=== PATIENT | female | born 1970 | race Caucasian/White ===

== ENCOUNTER 2023-12-18 08:20 | Day surgery (SDC) | payer MEDICAID, SELFPAY ==
[2023-12-18] VITALS (9 sets, daily range): BP systolic 96–119; BP diastolic 64–79; PULSE 62–71; RESP 16; TEMP 36.1; O2SAT 96–100; BMI 35.9
[2023-12-18] MEDS: Lactated Ringers 1,000 ML 15 ML IV (08:51)
--- NOTE | 2023-12-18 08:58 | PCM.PRE.AN2 ---
ASA Classification* ASA Classification ASA Classification: 2 Assessment & Plan Anesthesia* Anesthesia Assessment Anesthesia Assessment: Discussed sedation and/or anesthesia options, risks, benefits, and alternatives with patient/parents/legal guardian/POA. Questions invited. The patient/parents/legal guardian/POA seems to understand and agrees to proceed with anesthesia plan. Reviewed the physical assessment, medical history, allergy history and patient home medications list prior to surgery/procedure/anesthetic and documented any changes. Performed airway and anesthesia risk assessments. Anesthesia Type Anesthesia Type: MAC Pre-Assessment Diagnosis/Proposed Procedure Planned Operative Procedure(s): COLONOSCOPY Anesthesia History Anesthesia History - bicycle mechanic: Anesthesia History - bicycle mechanic Hx Hospitalization No 12/13/23 15:08 Any Problems With Anesthesia No 12/13/23 15:08 Cholinesterase deficiency No 12/13/23 15:08 You/Your Family Experience No 12/13/23 15:08 fever (hyperthermia) with Relationship Recent Exposure to Contagious No 12/18/23 08:42 Disease Does patient have nerve No 12/13/23 15:08 stimulator Patient instructed to have device shut off --Does patient have Pacemaker No 12/18/23 08:42 or ICD? When Was Last Pacemaker Check QUESTION #4 FULL TEXT: You/Your Family Experience fever (hyperthermia) with Anesthesia Last Oral Intake Last Oral intake: Last Oral Intake NPO since 04:45 12/18/23 08:42 Meds taken in AM with sips of No 12/18/23 08:42 water? Meds patient instructed to take am of surgery PONV PONV - bicycle mechanic: PONV - bicycle mechanic Female Yes 12/13/23 15:08 HX of Motion Sickness No 12/13/23 15:08 HX of N/V After Surgery No 12/13/23 15:08 Non-Smoker Yes 12/13/23 15:08 Duration of Surgery greater No 12/13/23 15:08 than 60 minutes Number of Risk Factors 2 12/13/23 15:08 PONV Score Moderate Risk 12/13/23 15:08 Height & Weight Height & Weight: Anesthesia: Height & Weight Height 5 ft 5 in 12/18/23 08:42 Weight: 98 kg 12/18/23 08:42 Body Mass Index (BMI) 35.9 12/18/23 08:42 Respiratory Assessment Respiratory Assessment - bicycle mechanic: Respiratory Tract Infection Hx - bicycle mechanic Hx Respiratory Tract Infection No 12/13/23 15:08 STOP Sleep Apnea STOP Sleep Apnea - bicycle mechanic: STOP Sleep Apnea - bicycle mechanic Hx Hypertension No 12/13/23 15:08 Hx Sleep Apnea No 12/13/23 15:08 CPAP BIPAP Do you snore loudly (louder No 12/13/23 15:08 than talking or can be heard Do you often feel tired/ No 12/13/23 15:08 fatigued/ sleepy during daytime? Has anyone observed you stop No 12/13/23 15:08 breathing during sleep? STOP Results Negative 12/13/23 15:08 QUESTION #5 FULL TEXT : Do you snore loudly (louder than talking or can be heard through closed doors)? Tobacco Use History Tobacco Use History - bicycle mechanic: Tobacco Use History - bicycle mechanic Tobacco Use Smoking Status Never smoker 12/13/23 15:08 Hx Tobacco Use No 12/13/23 15:08 Years Smoking Packs Smoked per Day Smoking Cessation Date was within the last 15 years Hx Smoking Cessation Date Hx Smoking Cessation Counseling Hematologic Medial History Hematologic Hx - bicycle mechanic: Hematologic Medical Hx - senior production planner Hx of Blood Transfusion No 12/13/23 15:08 Hx of Transfusion in last 3 No 12/13/23 15:08 Months Date of Last Transfusion (if within last 3 months) Ever experience any problems No 12/13/23 15:08 with transfusion(s)? Specify any problems Hx of Preganancy in last 3 No 12/13/23 15:08 Months Nurse Filling Out Transfusion [facility] 12/13/23 15:08 & Questions: Date: 12/13/23 12/13/23 15:08 Time: 15:18 12/13/23 15:08 Patient unable to answer at this time (ie. confused, unrespo /Reproduction History /Reproductive History - bicycle mechanic: /Reproductive Hx- bicycle mechanic Hx Now No 12/13/23 15:08 Gestational Age (in weeks): EDC: Hx Hx Para Hx Section SAB No 12/13/23 15:08 Active Medications Active Medications: Current Medications Generic Name Dose Route Start Last Admin Trade Name Freq PRN Reason Stop Dose Admin Lactated Ringer's 1,000 mls @ 15 mls/hr 12/18/23 08:30 12/18/23 08:51 IV 15 mls/hr .Q48H TERI Administration Anesthesia Focused Assessment* Temperature: 97 F Pulse Rate: 63 Blood Pressure: 119/79 Respiratory Rate: 16 Pulse Ox: 98 Airway Assessment Mouth opens: >3 cm Mallampati Score: III Teeth Condition: Caps/Crowns (Multiple tight) and Missing (1 missing tooth left upper molar) Neck Range of motion (ROM): Full ROM Pertinent Findings EKG Pertinent Findings:: EKG from July 12, 2022 shows sinus tachycardia nonspecific ST changes ECHO Pertinent Findings:: Echo performed on June 28, 2022 showed an ejection fraction of 55 to 60% Other Pertinent Findings:: Patient did not take any medications today Focused Labs Anesthesia Preop lab: CBC CHEMISTRY COAG Review of Systems (Anesthesia) ROS Narrative System reviewed and no additional complaints, except as documented. [facility] Medical History Wears glasses History of Clostridium difficile infection Thyroid disease Arthritis History of renal disease Anemia Restless legs Non-smoker History of edema History of echocardiogram Fibromyalgia Hx of colonic polyp Family hx of colon cancer Home Medications ?Medication ?Instructions ?Recorded ?Last Taken ?Type dextromethorphan IR 45 1 tab PO BID 12/03/23 Unknown History mg-bupropion ER 105 mg biphasic tablet (Auvelity) duloxetine 20 mg capsule,delayed 60 mg PO DAILY 12/03/23 Unknown History release gabapentin 400 mg capsule 400 mg PO TID 12/03/23 Unknown History thyroid (pork) 120 mg tablet 120 mg PO DAILY 12/03/23 Unknown History ([place] Thyroid) tizanidine 4 mg tablet 4 mg PO Q8H PRN muscle spasticity 12/03/23 Unknown History montelukast 10 mg tablet 10 mg PO DAILY 12/13/23 Unknown History (Singulair) Allergy/AdvReac Type Severity Reaction Status Date / Time No Known Allergies Allergy Verified 12/18/23 08:38 Family History Grandfather Colon cancer Grandmother Colon cancer Brother Colon polyps Surgical History History of hernia repair History of carpal tunnel release of both wrists History of vein stripping History of History of Humberto fundoplication History of laparoscopic cholecystectomy History of microdiscectomy Hx of colonoscopy Social History Smoking Status: Never smoker
--- NOTE | 2023-12-18 09:15 | COLBX_PTH ---
PATIENT: JILL SWAIN LOC: [facility] U#:[id number] AGE/SX: 53/F ROOM: RE12/18/[address]: Dr. Walter Kramer DO : 1970 BED: DIS: 12/18/2023 SPEC #: [id number] RECD: 12/18/23 13:00 STATUS: CRISTHIAN GRULLONNatasha #: [id number] KIRSTIE: 12/18/23 09:[address]: Walter Kramer DEPT: SURGICAL PATHOLOGY RECD BY: Nayely Gaitan ENTERED: 12/18/23 14:08 SP TYPE: COLON BX OTHR DR: Briana Avitia, SERVICE CENTER TECHNICIAN-C Tissues: Cecum, NOS Procedures: Surgery Specimen Level IV HEADER OPERATION: Colonoscopy, polypectomy, clip application PRE-OP DIAGNOSIS: Colon screening TISSUE SUBMITTED: Cecum polyp MICROSCOPIC DIAGNOSIS Cecum polyp, biopsy: Hyperplastic polyp. See comment. CHINYERE/ 12/19/2023 COMMENT There is abundant submucosal fatty tissue. A lipomatous change is likely. Clinical correlation is suggested. MICROSCOPIC DESCRIPTION Slides are reviewed. GROSS DESCRIPTION Received in fixative is one container labeled with the patient's name and designated Cecum polyp. The specimen consists of one irregular fragment of light dawn soft tissue that measures 1.0 x 0.6 x 0.5 cm. The specimen is totally submitted in one cassette. AM/ 12/18/2023 TC:5 CPT:51418
--- NOTE | 2023-12-18 09:44 | PCM.POST.ANE ---
Anesthesia: Postop Eval I Current Vital Signs Temperature: 97 F Pulse Rate: 71 Blood Pressure: 99/64 Respiratory Rate: 16 Pulse Ox: 100 Oxygen Delivery Method: Room Air Assessment Airway patent: Yes Spontaneous unlabored respirations: Yes Mental status: Awake and Calm nausea: No Vomiting: No Anesthesia Complication: No Fluid Hydration Crystalloid volume administer (ml): 600 Total IV fluid infused: 600 Progress Note Anesthesia document: Postop Eval 1 completed: Yes
--- NOTE | 2023-12-18 09:45 | OP.COLON_ITS ---
Patient Name: Emeli Pierre Procedure Date: 12/18/2023 9:10 AM Date of : 1970 Age: 53 Procedure: Colonoscopy Indications: Screening for colorectal malignant neoplasm Providers: Walter Kramer DO Medicines: Monitored Anesthesia Care Patient Profile: This is a 53 year old female. Refer to note in patient chart for documentation of history and physical. Last Colonoscopy: more than 10 years ago. Complications: No immediate complications. Procedure: Pre-Anesthesia Assessment: - Prior to the procedure, a History and Physical was performed, and patient medications and allergies were reviewed. The patient is competent. The risks and benefits of the procedure and the sedation options and risks were discussed with the patient. All questions were answered and informed consent was obtained. Patient identification and proposed procedure were verified by the physician in the pre-procedure area. Mental Status Examination: alert and oriented. Airway Examination: normal oropharyngeal airway and neck mobility. Respiratory Examination: clear to auscultation. CV Examination: normal. Prophylactic Antibiotics: The patient does not require prophylactic antibiotics. Prior Anticoagulants: The patient has taken no anticoagulant or antiplatelet agents. ASA Grade Assessment: II - A patient with mild systemic disease. After reviewing the risks and benefits, the patient was deemed in satisfactory condition to undergo the procedure. The anesthesia plan was to use monitored anesthesia care (MAC). Immediately prior to administration of medications, the patient was re-assessed for adequacy to receive sedatives. The heart rate, respiratory rate, oxygen saturations, blood pressure, adequacy of pulmonary ventilation, and response to care were monitored throughout the procedure. The physical status of the patient was re-assessed after the procedure. After I obtained informed consent, the scope was passed under direct vision. Throughout the procedure, the patient's blood pressure, pulse, and oxygen saturations were monitored continuously. The Colonoscope was introduced through the anus and advanced to the cecum, identified by appendiceal orifice and ileocecal valve. The colonoscopy was performed without difficulty. The patient tolerated the procedure well. The quality of the bowel preparation was adequate. The terminal ileum, ileocecal valve, appendiceal orifice, and rectum were photographed. Scope In: 9:20:48 AM Scope Withdrawal Time 0 hours 13 minutes 21 seconds Scope Out: 9:37:13 AM Total Procedure Duration Time 0 hours 16 minutes 25 seconds Findings: The perianal and digital rectal examinations were normal. A 10 mm polyp was found in the cecum. The polyp was sessile. The polyp was removed with a hot snare. Resection and retrieval were complete. To prevent bleeding after the polypectomy, one hemostatic clip was successfully placed. Clip transport engineer: [employer]. There was no bleeding at the end of the procedure. A few small-mouthed diverticula were found in the recto-sigmoid colon and sigmoid colon. The exam was otherwise without abnormality on direct and retroflexion views. Impression: - One 10 mm polyp in the cecum, removed with a hot snare. Resected and retrieved. Clip was placed. Clip transport engineer: [employer]. - Diverticulosis in the recto-sigmoid colon and in the sigmoid colon. - The examination was otherwise normal on direct and retroflexion views. Recommendation: - Discharge patient to home. - Resume previous diet. - Continue present medications. - Await pathology results. - Repeat colonoscopy in 5 years for surveillance. Procedure Code(s): --- Professional --- 92759, Colonoscopy, flexible; with removal of tumor(s), polyp(s), or other lesion(s) by snare technique CPT copyright 2021 [employer]. All rights reserved. The codes documented in this report are preliminary and upon harp regulator review may be revised to meet current compliance requirements. Walter Kramer DO 12/18/2023 9:44:46 AM This report has been signed electronically. Number of Addenda: 0 Note Initiated On: 12/18/2023 9:10 AM
--- NOTE | 2023-12-18 09:45 | OP.CCLET_ITS ---
12/18/2023 Sher Manuel Re : Colonoscopy procedure for Emeli Byrd Avitia This procedure was performed on Monday, December 18, 2023. My impressions and recommendations are as follows: Impressions : - One 10 mm polyp in the cecum, removed with a hot snare. Resected and retrieved. Clip was placed. Clip hvac service manager: [employer]. - Diverticulosis in the recto-sigmoid colon and in the sigmoid colon. - The examination was otherwise normal on direct and retroflexion views. Recommendations : - Discharge patient to home. - Resume previous diet. - Continue present medications. - Await pathology results. - Repeat colonoscopy in 5 years for surveillance. My findings are described in the full procedure note, which is enclosed. If I can be of further assistance, please feel free to contact me at . Sincerely, Walter Kramer, 12/18/2023 9:44:46 AM This report has been signed electronically.
--- NOTE | 2023-12-18 12:10 | HP.PCM_ITS ---
HPI - General General Date of Admission: 12/18/23 Date of Service: 12/18/23 Chief Complaint: Screening colonoscopy HPI Narrative JILL SWAIN, is a 53 F who presents today for screening colonoscopy. She does not have abdominal pain. She did not have any nausea, vomiting or diarrhea. Overall she is in very good health. [facility] Medical History Wears glasses History of Clostridium difficile infection Thyroid disease Arthritis History of renal disease Anemia Restless legs Non-smoker History of edema History of echocardiogram Fibromyalgia Hx of colonic polyp Family hx of colon cancer Home Medications ?Medication ?Instructions ?Recorded ?Last Taken ?Type dextromethorphan IR 45 1 tab PO BID 12/03/23 Unknown History mg-bupropion ER 105 mg biphasic tablet (Auvelity) duloxetine 20 mg capsule,delayed 60 mg PO DAILY 12/03/23 Unknown History release gabapentin 400 mg capsule 400 mg PO TID 12/03/23 Unknown History thyroid (pork) 120 mg tablet 120 mg PO DAILY 12/03/23 Unknown History ([place] Thyroid) tizanidine 4 mg tablet 4 mg PO Q8H PRN muscle spasticity 12/03/23 Unknown History montelukast 10 mg tablet 10 mg PO DAILY 12/13/23 Unknown History (Singulair) Allergy/AdvReac Type Severity Reaction Status Date / Time No Known Allergies Allergy Verified 12/18/23 08:38 Family History Grandfather Colon cancer Grandmother Colon cancer Brother Colon polyps Surgical History History of hernia repair History of carpal tunnel release of both wrists History of vein stripping History of History of Humberto fundoplication History of laparoscopic cholecystectomy History of microdiscectomy Hx of colonoscopy Social History Smoking Status: Never smoker ROS Review of Systems ROS Unobtainable: other Constitutional Constitutional: Denies fatigue, fever(s), poor appetite, weight gain or weight loss ENT HEENT: Denies mouth lesions Cardiovascular Cardiovascular: Denies abdominal bloating, abdominal edema or abdominal pain Respiratory/Chest Respiratory/Chest: Denies change in mental status, change in phlegm color, chest congestion or chest tightness Gastrointestinal Gastrointestinal: Denies belching, bloating, change in bowel habits, change in stool character, chewing difficulty, coffee ground emesis, constipation, cramping, diarrhea, dyspepsia, dysphagia, early satiety, excessive flatus, fecal incontinence, heartburn, hematemesis, hematochezia, hemorrhoids, loose stools, melena, nausea, odynophagia, rectal bleeding, tenesmus, vomiting or weight changes Genitourinary Genitourinary: Denies abdominal discomfort, burning urination or itching Musculoskeletal Musculoskeletal: Reports as per HPI; Denies muscle weakness or myalgias Integumentary Integumentary: Denies jaundice Neurologic Neurologic: Denies lack of coordination or weakness Psychiatric Psychiatric: Denies confusion, depression, memory loss, mood swings, paranoia or suicidal ideation Endocrine Endocrinology: Denies systems reviewed and no addt'l complaints, except as documented Hematologic/Lymphatic Hematologic/Lymphatic: Denies anemia, easy bleeding, easy bruising or lymphadenopathy Allergic/Immunologic Allergic/Immunologic: Denies systems reviewed and no addt'l complaints, except as documented Vital Signs Vital Signs Vital Signs: Weight Weight: 216 lb 0.848 oz Body Mass Index (BMI) 35.9 Physical Exam Const alert General Appearance: cooperative Orientation / Consciousness: oriented to person HEENT hearing grossly normal bilaterally Head and Scalp: normal to inspection Face and Sinus: face symmetric Nose: external nose normal Mouth: oral and palatal mucosa normal Eyes conjunctivae normal General Eye: normal appearance of both eyes Neck full ROM General: normal visual inspection Lymph Lymphatic: no lymphadenopathy noted Chest inspection of chest normal and palpation of chest normal Chest: symmetrical chest wall rise Resp normal respiratory effort Effort and Inspection: able to speak in complete sentences Cardio regular rate GI non-distended Percussion: normal to percussion Rectal Exam: deferred Neuro Speech: speech normal Gait (Neuro): normal gait Assessment & Plan Assessment/Plan (1) Encounter for screening for malignant neoplasm of colon: PLAN: She was explained alternatives, risk, benefits including outstanding bleeding, infection, sepsis, perforation, need for mergers and . She have an ASA of 3.
--- NOTE | 2023-12-18 12:13 | PCM.POSTANE2 ---
Anesthesia Postop Eval I Sum Postop Eval Completion status Anesthesia document: Postop Eval 1 completed: Yes Anesthesia Postop Eval I Summary Anesthesia Postop Eval I Summary: Anesthesia Postop Eval I: Assessment Summary Airway patent Yes 12/18/23 09:47 [email or web address] Spontaneous unlabored Yes 12/18/23 09:47 [email or web address] respirations Mental status Awake,Calm 12/18/23 09:47 [email or web address] nausea No 12/18/23 09:47 [email or web address] Vomiting No 12/18/23 09:47 [email or web address] Anesthesia Postop Eval I: Fluid Summary Crystalloid volume administer 600 12/18/23 09:47 [email or web address] (ml) Colloids volume administered ( ml) Blood Product volume administered (ml) Total IV fluid infused 600 12/18/23 09:47 [email or web address] Anesthesia Postop Eval I: Summary Notes Anesthesia Complication No 12/18/23 09:47 [email or web address] Anesthesia Complication Comment: Post-operative progress note Anesthesia: Postop Eval II Evaluation Mental status: Awake Pain Level: 0 nausea: No Vomiting: No Complications Anesthesia Complication: No
== END 2023-12-18 10:35 | disposition home or self-care (01) ==
LOC: EN 08:23 → AC 08:24
PROVIDERS: PCP Nurse Practitioner Family; Referring Provider Nurse Practitioner Family; Visit Provider Internal Medicine Gastroenterology
PROC: 0DJD8ZZ Inspection of Lower Intestinal Tract, Via Natural or Artificial Opening Endoscopic (ICD-10-PCS; CPT 45378; principal; 2023-12-18 09:10)
DX: Z12.11 Encounter for screening for malignant neoplasm of colon (principal); K57.30 Diverticulosis of large intestine without perforation or abscess without bleeding; Z80.0 Family history of malignant neoplasm of digestive organs; Z86.010 Personal history of colon polyps; D12.0 Benign neoplasm of cecum
CPT/HCPCS: 45385; 88305; J2405